=== PATIENT | female | born 1985 | race Two or more races ===

== ENCOUNTER 2016-03-31 12:54 | Emergency (ER) | payer MEDICAID ==
[~2016-03-31] VITALS: Ht 162.6 cm; Wt 59.9 kg
[2016-03-31 13:20] VITALS: BP 132/78
[2016-03-31 13:52] LABS: APPEARANCE,URINE CLEAR; KETONES,URINE NEGATIVE (NEGATIVE); LEUKOCYTE ESTERASE ,URINE 1+ (NEGATIVE); NITRITE,URINE NEGATIVE (NEGATIVE); PH,URINE 8 (4.5-8.0); PROTEIN,URINE NEGATIVE (NEGATIVE); UROBILINOGEN,URINE NORMAL MG/DL (0.0-1.0)
--- NOTE | 2016-03-31 14:05 | Emergency Room Report ---
History of Present Illness General Chief Complaint: Abdominal Pain Source: Patient (LIANNE ROSS M.D.) Present Illness HPI 30 YO F presents with acute worsening right upper quadrant pain radiating to back with subjective chills at home. Has had for >1 month, acutely worse today with bilious yellow vomiting. Denies diarrhea, urinary complaints, sick contacts , foreign travel, history of abd/pelvis surgery, other medical problems. Has been tx with OTC meds all month with some improvement. No history of gallstones. (LIANNE ROSS M.D.) Allergies: Coded Allergies: No Known Allergies (Unverified , 03/31/16) Patient History Past Medical History: none Past Surgical History: none Pertinent Family History: none Social History: Denies: alcohol use, drug use, smoking Last Menstrual Period: Now: No Immunizations: UTD Reviewed Nursing Documentation: PMH: Agreed, PSxH: Agreed (LIANNE ROSS M.D.) Nursing Documentation-PMH Past Medical History: No Stated History (LIANNE ROSS M.D.) Review of Systems All Other Systems: negative except mentioned in HPI (LIANNE ROSS M.D.) Physical Exam Vital Signs Date Time Temp Pulse Resp B/P Pulse Ox O2 Delivery O2 Flow Rate FiO2 03/31/16 13:10 98.1 72 18 108/74 100 Room Air Sp02 EP Interpretation: reviewed, normal General Appearance: normal inspection, well appearing, alert, GCS 15, non-toxic , moderate distress Head: normocephalic, atraumatic Eyes: bilateral eye EOMI, bilateral eye PERRL ENT: normal ENT inspection, hearing grossly normal, normal voice Neck: normal inspection, full range of motion, supple, no bony tend Respiratory: normal inspection, lungs clear, normal breath sounds, no respiratory distress, no retraction, no wheezing Cardiovascular #1: regular rate, rhythm, no edema Gastrointestinal: normal inspection, normal bowel sounds, soft, no hernia, no pulsatile mass, no rebound, guarding, other - +RUQ ttp with guarding. No rebound or rigidity. Genitourinary: no CVA tenderness Musculoskeletal: normal inspection, back normal, normal range of motion, Vincent' s Sign negative Neurologic: normal inspection, alert, oriented x3, responsive, prototype technician III-XII nml as tested, motor strength/tone normal, speech normal Psychiatric: normal inspection, judgement/insight normal, mood/affect normal Skin: normal inspection, normal color, no rash Lymphatic: normal inspection (LIANNE ROSS M.D.) Medical Decision Making Diagnostic Impression: Primary Impression: RUQ abdominal pain Additional Impression: Vomiting Qualified Codes: R11.14 - Bilious vomiting ER Course RUQ pain with bilious vomiting. VSS. Afebrile. DDx acute carmen, pancreatitis, colitis, viral gastroenteritis PLAN Labs, IVF, zofran, morphine, ABD sono, reassess (LIANNE ROSS M.D.) ER Course This patient was turned over to me by Dr. Ross. She presented with right upper quadrant abdominal pain that has begun on times one month. She's also had nausea, vomiting and diarrhea. She was pending a right upper quadrant ultrasound and laboratory workup. Right upper quadrant ultrasound showed no significant findings. She did have an enlarged gallbladder. Given the negative workup I did go ahead and obtain a CT abdomen and pelvis which did show evidence of enteritis. Further discussion with the patient I recommended she be admitted for pain control, however, she would like to try to use pain medications at home. Given this patient has had ongoing symptoms for about a month, I will set the patient on treatment for bacterial enteritis with ciprofloxacin and Flagyl. The patient Ultram for pain control. Patient was also instructed to return to the emergency department for worsening symptoms. At this time she preferred to go home and will return if her symptoms aren't controlled at home. She is also educated that she will need to followup with a legal billing coordinator and likely need to undergo further testing to include endoscopy. The patient indicated understanding and intention to do so. The patient was given close return precautions and followup instructions. Labs Test 03/31/16 13:25 03/31/16 14:22 Urine Color Pale yellow Urine Appearance Clear Urine pH 8 (4.5-8.0) Urine Specific [place] 1.010 (1.005-1.035) Urine Protein Negative (NEGATIVE) Urine Glucose (UA) Negative (NEGATIVE) Urine Ketones Negative (NEGATIVE) Urine Occult Blood 4+ (NEGATIVE) Urine Nitrite Negative (NEGATIVE) Urine Bilirubin Negative (NEGATIVE) Urine Urobilinogen Normal MG/DL (0.0-1.0) Urine Leukocyte Esterase 1+ (NEGATIVE) Urine RBC 2-4 /HPF (0 - 2) Urine WBC 2-4 /HPF (0 - 2) Urine Squamous Epithelial Cells Few /LPF (NONE/OCC) Urine Bacteria Few /HPF (NONE) Urine HCG, Qualitative Negative White Blood Count 8.6 K/UL (4.8-10.8) Red Blood Count 4.02 M/UL (4.20-5.40) Hemoglobin 12.7 G/DL (12.0-16.0) Hematocrit 38.9 % (37.0-47.0) Mean Corpuscular Volume 97 FL (80-99) Mean Corpuscular Hemoglobin 31.6 PG (27.0-31.0) Mean Corpuscular Hemoglobin Concent 32.6 G/DL (32.0-36.0) Red Cell Distribution Width 12.1 % (11.6-14.8) Platelet Count 260 K/UL (150-450) Mean Platelet Volume 7.3 FL (6.5-10.1) Neutrophils (%) (Auto) 65.7 % (45.0-75.0) Lymphocytes (%) (Auto) 25.5 % (20.0-45.0) Monocytes (%) (Auto) 7.3 % (1.0-10.0) Eosinophils (%) (Auto) 0.6 % (0.0-3.0) Basophils (%) (Auto) 1.0 % (0.0-2.0) Sodium Level 139 mEQ/L (135-145) Potassium Level 4.0 mEQ/L (3.4-4.9) Chloride Level 99 mEQ/L (98-107) Carbon Dioxide Level 21 mEQ/L (20-30) Anion Gap 19 (5-15) Blood Urea Nitrogen 13 mg/dL (7-23) Creatinine 0.5 mg/dL (0.5-0.9) Estimat Glomerular Filtration Rate > 60 mL/min (>60) Glucose Level 89 mg/dL (74-106) Calcium Level 9.1 mg/dL (8.6-10.2) Total Bilirubin 0.2 mg/dL (0.0-1.2) Aspartate Amino Transf (AST/SGOT) 21 U/L (5-40) Alanine Aminotransferase (ALT/SGPT) 19 U/L (3-33) Alkaline Phosphatase 47 U/L (35-104) Total Protein 7.3 g/dL (6.6-8.7) Albumin 4.7 g/dL (3.5-5.2) Globulin 2.6 g/dL Albumin/Globulin Ratio 1.8 (1.0-2.7) Lipase 32 U/L (< 60) (MAKAYLA LOJA D.O.) CT/MRI/US Diagnostic Results CT/MRI/US Diagnostic Results : Imaging Test Ordered: CT abd/pelvis, RUQ US Impression Nonspecific contact throughout small bowel, nonobstructive/mild ileitis/ enteritis. Right upper quadrant ultrasound shows no evidence of cholecystitis or cholelithiasis. The gallbladder is enlarged. There is no formal reading on the ultrasound by the radiologist. Please see official report. (MAKAYLA LOJA D.O.) Last Vital Signs Date Time Temp Pulse Resp B/P Pulse Ox O2 Delivery O2 Flow Rate FiO2 03/31/16 13:10 98.1 72 18 108/74 100 Room Air (LIANNE ROSS M.D.) Disposition: HOME, SELF-CARE Condition: Stable Referrals: NOT CHOSEN IPA/,REFERRING (PCP) LIANNE ROSS M.D. Mar 31, 2016 14:05 MAKAYLA LOJA D.O. Mar 31, 2016 18:59
[2016-03-31 14:06] LABS: BACTERIA,URINE FEW /HPF; SQUAMOUS EPITHELIAL CELL,UR FEW /LPF (NONE/OCC)
[2016-03-31] MEDS ORDERED: Morphine Sulfate 4mg/ml Inj IVP ONE (14:15)
[2016-03-31 14:36] LABS: EOSINOPHILS % (AUTO) 0.6 % (0.0-3.0); LYMPHOCYTES % (AUTO) 25.5 % (20.0-45.0); MEAN CORPUSCULAR HEMOGLOBIN 31.6 PG (27.0-31.0); MEAN CORPUSCULAR HGB CONC 32.6 G/DL (32.0-36.0); MEAN CORPUSCULAR VOLUME 97 FL (80-99); MEAN PLATELET VOLUME 7.3 FL (6.5-10.1); MONOCYTES % (AUTO) 7.3 % (1.0-10.0); NEUTROPHILS % (AUTO) 65.7 % (45.0-75.0); PLATELET COUNT 260 K/UL (150-450); RED BLOOD COUNT 4.02 M/UL (4.20-5.40); RED CELL DISTRIBUTION WIDTH 12.1 % (11.6-14.8); WHITE BLOOD COUNT 8.6 K/UL (4.8-10.8)
[2016-03-31 14:53] LABS: ALANINE AMINOTRANSFERASE 19 U/L (3-33); ALBUMIN/GLOBULIN RATIO 1.8 (1.0-2.7); ANION GAP 19 (5-15); ASPARTATE AMINO TRANSFERASE 21 U/L (5-40); CALCIUM 9.1 mg/dL (8.6-10.2); CARBON DIOXIDE 21 mEQ/L (20-30); CHLORIDE 99 mEQ/L (98-107); CREATININE 0.5 mg/dL (0.5-0.9); GLOMERULAR FILTRATION RATE > 60 mL/min (>60); HEMOLYSIS 8; LIPASE 32 U/L (< 60); SODIUM 139 mEQ/L (135-145); TOTAL PROTEIN 7.3 g/dL (6.6-8.7)
[2016-03-31 15:17] VITALS: BP 114/63
[2016-03-31] MEDS ORDERED: Lidocaine 2% Visc 15ml soln ORAL ONE (17:15)
[2016-03-31] MEDS ORDERED: Ketorolac 30mg Inj IV ONE (17:15)
[2016-03-31] MEDS ORDERED: ULTRAM50 MG ORAL (19:42)
[2016-03-31] MEDS ORDERED: CIPROFLOXACIN500 M2 ORAL (19:42)
[2016-03-31] MEDS ORDERED: METRONIDAZOLE500 MG ORAL (19:42)
[2016-03-31] MEDS ORDERED: ZOFRAN ODT8 MG ORAL (19:42)
[2016-03-31 19:57] VITALS: BP_SYST 114; BP_SYST 117; BP_DIAS 63; BP_DIAS 66
--- NOTE | 2016-04-01 08:44 | Diagnostic Imaging Report ---
Clinical Indication: Abdominal pain right upper quadrant Technique: No oral contrast utilized, per emergency room physician request IV administration nonionic contrast. Venous phase spiral acquisition obtained through the abdomen and pelvis. Multiplanar reconstructions were generated. Total dose length product 820 mGycm. CTDIvol(s) 16 mGy Comparison: None Findings: No evidence of diverticulosis or diverticulitis. Normal appendix. No small bowel distention. Small bowel loops are somewhat fluid filled. The distal esophagus and stomach are unremarkable. No free or loculated intraperitoneal air or fluid. The gallbladder is distended, but there are no stones, wall thickening, or evidence of pericholecystic inflammation. The liver, bile ducts, pancreas, spleen, adrenals, kidneys are unremarkable. No mesenteric or retroperitoneal mass or adenopathy. The left ovary contains a 3.4 cm cyst. The uterus demonstrates multiple small cervical nabothian cysts. Included lung bases are clear. The bones are unremarkable. Impression: Mildly fluid-filled small bowel, could indicate mild enteritis changes. Correlate with clinical findings No acute process otherwise 3.4 cm left ovarian cyst. Recommend further followup with pelvic and endovaginal ultrasonography Incidental finding of cervical nabothian cysts. This agrees with the preliminary interpretation provided overnight by Dr. Vega The CT scanner at [facility] is accredited by the [employer] and the scans are performed using protocols designed to limit radiation exposure to as low as reasonably achievable to attain images of sufficient resolution adequate for diagnostic evaluation.
--- NOTE | 2016-04-01 11:19 | Diagnostic Imaging Report ---
Indication: Right upper quadrant pain, nausea, vomiting Technique: Auguste-scale and duplex images of the upper abdomen were obtained Comparison: None Findings: . Gallbladder is distended. No definite stones. Collateral borderline thickened, measuring 3 mm thick. No pericholecystic fluid. There is questionably some sludge. Sonographic Tena's sign is positive, per technologist. Common bile duct measures 4 mm in diameter. No intrahepatic biliary ductal dilatation. Liver demonstrates normal echogenicity, no focal abnormality. Portal vein and hepatic veins are patent.. Pancreas is incompletely visualized due to overlying bowel gas, visualized portions are unremarkable. Spleen is unremarkable. Left kidney measures 10.7 cm in length. Right kidney measures 10.6 cm length. Both kidneys demonstrate normal echogenicity. There is no hydronephrosis. No focal abnormality. . Non-aneurysmal abdominal aorta. Impression: Negative for gallstones. However, equivocal slight gallbladder wall thickening and positive sonographic Tena's sign raises concern or possibly acute cholecystitis. On clinical findings, consider hepatobiliary nuclear scan if there is high clinical suspicion. There maybe a small amount of gallbladder sludge Negative for dilated ducts No other acute or significant abnormalities. Note inability to visualize the entire pancreas
== END 2016-03-31 19:59 | disposition home or self-care (01) ==
LOC: EMR 13:27
DX: R10.11 Right upper quadrant pain (principal); R11.14 Bilious vomiting
CPT/HCPCS: 36415; 74177; 76700; 80053; 81003; 81025; 83690; 85025; 96374; 96375; 99284; J1885; J2270; J2405; Q9967

== ENCOUNTER 2017-08-25 12:19 | Emergency (ER) | payer MEDICAID ==
[~2017-08-25] VITALS: Ht 162.6 cm; Wt 54.4 kg
[~2017-08-25 12:19] MED LIST: CIPROFLOXACIN500 M2 ORAL; METRONIDAZOLE500 MG ORAL; ULTRAM50 MG ORAL; ZOFRAN ODT8 MG ORAL
[2017-08-25 12:59] VITALS: BP 108/64
[2017-08-25] MEDS ORDERED: Metoclopramide 10mg/2ml Inj IVP ONE (13:30)
[2017-08-25] MEDS ORDERED: Lidocaine 2% Visc 15ml soln ORAL ONE (13:30)
[2017-08-25] MEDS ORDERED: Mylanta II UD 30ml ORAL ONE (13:30)
[2017-08-25] MEDS ORDERED: Dicyclomine HCl 10mg/5ml oral soln ORAL ONE (13:30)
[2017-08-25 13:40] LABS: ANION GAP 10 mmol/L (5-15); BLOOD UREA NITROGEN 15 mg/dL (7-18); CALCIUM 8.4 MG/DL (8.5-10.1); CARBON DIOXIDE 27 MMOL/L (21-32); CHLORIDE 102 MMOL/L (98-107); CREATININE 0.6 MG/DL (0.55-1.30); POTASSIUM 3.6 MMOL/L (3.5-5.1); SODIUM 138 MMOL/L (136-145)
[2017-08-25 13:42] LABS: BASOPHILS % (AUTO) 0.9 % (0.0-2.0); EOSINOPHILS % (AUTO) 0.8 % (0.0-3.0); HEMATOCRIT 39.7 % (37.0-47.0); HEMOGLOBIN 13.1 G/DL (12.0-16.0); LYMPHOCYTES % (AUTO) 18.7 % (20.0-45.0); MEAN CORPUSCULAR VOLUME 93 FL (80-99); MONOCYTES % (AUTO) 5.2 % (1.0-10.0); NEUTROPHILS % (AUTO) 74.4 % (45.0-75.0); PLATELET COUNT 286 K/UL (150-450); RED BLOOD COUNT 4.25 M/UL (4.20-5.40); RED CELL DISTRIBUTION WIDTH 11.5 % (11.6-14.8); WHITE BLOOD COUNT 8.7 K/UL (4.8-10.8)
[2017-08-25 13:44] LABS: ALANINE AMINOTRANSFERASE 27 U/L (12-78); ALBUMIN 4.1 G/DL (3.4-5.0); ALBUMIN/GLOBULIN RATIO 1.1 (1.0-2.7); ALKALINE PHOSPHATASE 54 U/L (46-116); ASPARTATE AMINO TRANSFERASE 22 U/L (15-37); BILIRUBIN,TOTAL 0.3 MG/DL (0.2-1.0)
[2017-08-25] MEDS ORDERED: RANITIDINE HCL150 MG ORAL (14:43)
[2017-08-25] MEDS ORDERED: ONDANSETRON ODT4 MG BC (14:43)
[2017-08-25] MEDS ORDERED: DICYCLOMINE HCL10 MG PO (14:43)
[2017-08-25 14:49] LABS: APPEARANCE,URINE CLEAR; BILIRUBIN, URINE NEGATIVE (NEGATIVE); COLOR,URINE PALE YELLOW; GLUCOSE, URINE (UA) NEGATIVE (NEGATIVE); KETONES,URINE NEGATIVE (NEGATIVE); LEUKOCYTE ESTERASE ,URINE NEGATIVE (NEGATIVE); NITRITE,URINE NEGATIVE (NEGATIVE); PH,URINE 7 (4.5-8.0); PROTEIN,URINE NEGATIVE (NEGATIVE); UROBILINOGEN,URINE NORMAL MG/DL (0.0-1.0)
[2017-08-25 14:55] VITALS: BP 108/64
--- NOTE | 2017-08-25 16:39 | Emergency Room Report ---
History of Present Illness General Chief Complaint: Abdominal Pain Source: Patient Present Illness HPI 32-year-old female presents ED complaining abdominal pain vomiting and diarrhea starting yesterday. Cramping pain, 8 out of 10, nonradiating. Denies fevers or chills. Denies sick contacts or recent travel. Denies recent antibiotic use. No other aggravating relieving factors. Denies any other associated symptoms Allergies: Coded Allergies: No Known Allergies (Unverified , 03/31/16) Patient History Past Medical History: none Past Surgical History: none Pertinent Family History: none Social History: Denies: smoking, alcohol use, drug use Now: No - 07/20/17 Immunizations: UTD Reviewed Nursing Documentation: PMH: Agreed; PSxH: Agreed Nursing Documentation-PMH Past Medical History: No Stated History Review of Systems All Other Systems: negative except mentioned in HPI Physical Exam Vital Signs Date Time Temp Pulse Resp B/P (MAP) Pulse Ox O2 Delivery O2 Flow Rate FiO2 08/25/17 12:41 97.8 62 16 110/60 98 Room Air 97.9 Sp02 EP Interpretation: reviewed, normal General Appearance: no apparent distress, alert, GCS 15, non-toxic Head: normocephalic, atraumatic Eyes: bilateral eye normal inspection, bilateral eye PERRL ENT: hearing grossly normal, normal pharynx, no angioedema, normal voice Neck: full range of motion, supple/symm/no masses Respiratory: chest non-tender, lungs clear, normal breath sounds, speaking full sentences Cardiovascular #1: regular rate, rhythm, no edema Cardiovascular #2: 2+ carotid (R), 2+ carotid (L), 2+ radial (R), 2+ radial (L) , 2+ dorsalis pedis (R), 2+ dorsalis pedis (L) Gastrointestinal: normal bowel sounds, non tender, soft, non-distended, no guarding, no rebound Rectal: deferred Genitourinary: normal inspection, no CVA tenderness Musculoskeletal: back normal, gait/station normal, normal range of motion, non- tender Neurologic: alert, oriented x3, responsive, motor strength/tone normal, sensory intact, speech normal Psychiatric: judgement/insight normal, memory normal, mood/affect normal, no suicidal/homicidal ideation Reflexes: 3+ bicep (R), 3+ bicep (L), 3+ tricep (R), 3+ tricep (L), 3+ knee (R) , 3+ knee (L) Skin: normal color, no rash, warm/dry, well hydrated Lymphatic: no adenopathy Medical Decision Making Diagnostic Impression: Primary Impression: Gastroenteritis ER Course Hospital Course 32-year-old F presents to ED with cramping abdominal pain with vomiting, diarrhea differential diagnosis: gastritis, SBO, cholecystits, gastroenteritis Clinical course Patient placed on stretcher. On network coordinator. After initial history and physical I ordered labs, IV fluids, Zofran and pepcid Labs - no leukocytosis, electrolytes ok , LFTs normal, UA unremarkable Upon reassessment, patient states pain has improved. findings consistent with gastroenteritis I feel this is a highly complex case requiring extensive working including EKG/ Rhythm strip, Xray/CT/US, Blood/urine lab work, repeat exams while in ED, and administration of strong opiates/narcotics for pain control, admission to hospital or close patient follow up. Diagnosis - gastroenteritis Stable and discharged to home with prescriptions for Zantac, zofran, bentyl. Followup with PMD. Return to ED if symptoms recur or worsen Labs Test 08/25/17 12:45 08/25/17 14:25 White Blood Count 8.7 K/UL (4.8-10.8) Red Blood Count 4.25 M/UL (4.20-5.40) Hemoglobin 13.1 G/DL (12.0-16.0) Hematocrit 39.7 % (37.0-47.0) Mean Corpuscular Volume 93 FL (80-99) Mean Corpuscular Hemoglobin 30.9 PG (27.0-31.0) Mean Corpuscular Hemoglobin Concent 33.1 G/DL (32.0-36.0) Red Cell Distribution Width 11.5 % (11.6-14.8) Platelet Count 286 K/UL (150-450) Mean Platelet Volume 7.1 FL (6.5-10.1) Neutrophils (%) (Auto) 74.4 % (45.0-75.0) Lymphocytes (%) (Auto) 18.7 % (20.0-45.0) Monocytes (%) (Auto) 5.2 % (1.0-10.0) Eosinophils (%) (Auto) 0.8 % (0.0-3.0) Basophils (%) (Auto) 0.9 % (0.0-2.0) Sodium Level 138 MMOL/L (136-145) Potassium Level 3.6 MMOL/L (3.5-5.1) Chloride Level 102 MMOL/L (98-107) Carbon Dioxide Level 27 MMOL/L (21-32) Anion Gap 10 mmol/L (5-15) Blood Urea Nitrogen 15 mg/dL (7-18) Creatinine 0.6 MG/DL (0.55-1.30) Estimat Glomerular Filtration Rate > 60 mL/min (>60) Glucose Level 87 MG/DL (74-106) Calcium Level 8.4 MG/DL (8.5-10.1) Total Bilirubin 0.3 MG/DL (0.2-1.0) Aspartate Amino Transf (AST/SGOT) 22 U/L (15-37) Alanine Aminotransferase (ALT/SGPT) 27 U/L (12-78) Alkaline Phosphatase 54 U/L (46-116) Total Protein 7.9 G/DL (6.4-8.2) Albumin 4.1 G/DL (3.4-5.0) Globulin 3.8 g/dL Albumin/Globulin Ratio 1.1 (1.0-2.7) Lipase 168 U/L (73-393) Urine Color Pale yellow Urine Appearance Clear Urine pH 7 (4.5-8.0) Urine Specific [place] 1.010 (1.005-1.035) Urine Protein Negative (NEGATIVE) Urine Glucose (UA) Negative (NEGATIVE) Urine Ketones Negative (NEGATIVE) Urine Occult Blood Negative (NEGATIVE) Urine Nitrite Negative (NEGATIVE) Urine Bilirubin Negative (NEGATIVE) Urine Urobilinogen Normal MG/DL (0.0-1.0) Urine Leukocyte Esterase Negative (NEGATIVE) Urine HCG, Qualitative Negative (NEGATIVE) Last Vital Signs Date Time Temp Pulse Resp B/P (MAP) Pulse Ox O2 Delivery O2 Flow Rate FiO2 08/25/17 12:59 98.0 78 18 108/64 98 Room Air 98.0 Status: improved Disposition: HOME, SELF-CARE Condition: Stable Scripts Dicyclomine Hcl* (DICYCLOMINE HCL*) 10 Mg Capsule 10 MG PO QID, #20 CAP Prov: Khanh George MD 08/25/17 Ranitidine Hcl* (ZANTAC*) 150 Mg Tablet 150 MG ORAL TWICE A DAY, #30 TAB Prov: Khanh George MD 08/25/17 Ondansetron Odt* (ZOFRAN ODT*) 4 Mg Tab.rapdis 4 MG BC EVERY 8 HOURS, #20 TAB 0 Refills Prov: Khanh George MD 08/25/17 Patient Instructions: Viral Gastroenteritis, Adult, [id number] Khanh George MD Aug 25, 2017 16:39
== END 2017-08-25 14:55 | disposition home or self-care (01) ==
LOC: EMR 13:34
DX: K52.9 Noninfective gastroenteritis and colitis, unspecified (principal)
CPT/HCPCS: 36415; 80053; 81003; 81025; 83690; 85025; 96361; 96374; 96375; 99284; J2765; S0028

== ENCOUNTER 2019-12-07 11:28 | Emergency (ER) | payer MEDICAID ==
[~2019-12-07] VITALS: Ht 160 cm; Wt 54.9 kg
[~2019-12-07 11:28] MED LIST changes: +DICYCLOMINE HCL10 MG PO; +ONDANSETRON ODT4 MG BC; +RANITIDINE HCL150 MG ORAL
--- NOTE | 2019-12-07 11:55 | Emergency Room Report ---
History of Present Illness General Chief Complaint: Abdominal Pain Source: Patient Present Illness HPI Disclaimer: Please note that this report is being documented using DRAGON technology. This can lead to erroneous entry secondary to incorrect interpretation by the dictating instrument. HPI: 34-year-old female presents for evaluation of abdominal pain and vomiting as well as diarrhea. Symptoms present for days. Seen in another emergency department 2 days ago and diagnosed with urinary tract infection. She has been compliant with her antibiotics but cannot recall the name of the antibiotic at this time. Reports persistent epigastric burning and cramping as well as vomiting. She feels generally weak. Denies fever, chills. Reports nonbloody diarrhea. Denies hematochezia or melena. Denies dysuria or hematuria or flank pain. No history of intra-abdominal surgeries. CT scan in her previous ER visit was reportedly unremarkable. PMH: Denied PSH: Denied Allergies: Denied Social Hx: Denies drug or alcohol abuse Allergies: Coded Allergies: No Known Allergies (Unverified , 03/31/16) COVID-19 Screening Contact w/high risk pt: No Experienced COVID-19 symptoms?: No COVID-19 Testing performed DIGESTER HAND: No Patient History Last Menstrual Period: july 2019 Nursing Documentation-PMH Past Medical History: No History, Except For Review of Systems All Other Systems: negative except mentioned in HPI Physical Exam Vital Signs Date Time Temp Pulse Resp B/P (MAP) Pulse Ox O2 Delivery O2 Flow Rate FiO2 12/07/19 11:33 98.1 72 18 146/82 (103) 98 Room Air General: Awake and alert, appears uncomfortable HEENT: NC/AT. EOMI. Cardiovascular: RRR. S1 and S2 normal. No murmur appreciated Resp: Normal work of breathing. No cough, wheezing or crackles appreciated Abdomen: Abdomen is soft, nondistended. Tender palpation in the epigastric and upper quadrants without Tena's tenderness. No masses. No rebound. Mild tenderness in the periumbilical region. No significant tenderness in the lower quadrants. Skin: Intact. No abrasions, laceration or rash over the exposed skin MSK: Normal tone and bulk. Moving all extremities. No obvious deformity. Neuro: Awake and alert. Mentating appropriately. Medical Decision Making Diagnostic Impression: Primary Impression: Abdominal pain Additional Impression: Gastroenteritis ER Course This a 34-year-old female presenting for evaluation of abdominal pain vomiting and diarrhea for 4 days. Differential includes was not limited to viral syndrome viral gastritis, gastroenteritis, pancreatitis, cholecystitis, food poisoning, persistent UTI to name a few. CT scan her previous ER visit was reportedly normal. Patient receiving IV fluids, antiemetics, antacids and pain medication. Labs have returned within normal limits. She is currently being treated for urinary tract infection has antibiotics at home. Patient was feeling better after receiving GI cocktail. Will discharge with refill of her Zantac and Zofran. Follow-up with PMD. Instructed to return with new or worsening symptoms. Laboratory Tests Test 12/07/19 12:00 White Blood Count 5.6 K/UL (4.8-10.8) Red Blood Count 4.09 M/UL (4.20-5.40) L Hemoglobin 13.0 G/DL (12.0-16.0) Hematocrit 37.4 % (37.0-47.0) Mean Corpuscular Volume 91 FL (80-99) Mean Corpuscular Hemoglobin 31.7 PG (27.0-31.0) H Mean Corpuscular Hemoglobin Concent 34.7 G/DL (32.0-36.0) Red Cell Distribution Width 12.3 % (11.6-14.8) Platelet Count 277 K/UL (150-450) Mean Platelet Volume 7.2 FL (6.5-10.1) Neutrophils (%) (Auto) 66.2 % (45.0-75.0) Lymphocytes (%) (Auto) 25.7 % (20.0-45.0) Monocytes (%) (Auto) 6.4 % (1.0-10.0) Eosinophils (%) (Auto) 0.4 % (0.0-3.0) Basophils (%) (Auto) 1.3 % (0.0-2.0) Urine Color Pale yellow Urine Appearance Clear Urine pH 5 (4.5-8.0) Urine Specific [place] 1.010 (1.005-1.035) Urine Protein Negative (NEGATIVE) Urine Glucose (UA) Negative (NEGATIVE) Urine Ketones Negative (NEGATIVE) Urine Blood Negative (NEGATIVE) Urine Nitrite Negative (NEGATIVE) Urine Bilirubin Negative (NEGATIVE) Urine Urobilinogen Normal MG/DL (0.0-1.0) Urine Leukocyte Esterase 1+ (NEGATIVE) H Urine RBC 0-2 /HPF (0 - 2) Urine WBC 2-4 /HPF (0 - 2) Urine Squamous Epithelial Cells Moderate /LPF (NONE/OCC) H Urine Bacteria Few /HPF (NONE) Urine Yeast Occasional /HPF (NONE) H Urine HCG, Qualitative Negative (NEGATIVE) Sodium Level 138 MMOL/L (136-145) Potassium Level 3.8 MMOL/L (3.5-5.1) Chloride Level 104 MMOL/L (98-107) Carbon Dioxide Level 24 MMOL/L (21-32) Anion Gap 10 mmol/L (5-15) Blood Urea Nitrogen 11 mg/dL (7-18) Creatinine 0.7 MG/DL (0.55-1.30) Estimated Glomerular Filtration Rate > 60 mL/min (>60) Glucose Level 98 MG/DL (74-106) Calcium Level 8.5 MG/DL (8.5-10.1) Total Bilirubin 0.4 MG/DL (0.2-1.0) Aspartate Amino Transferase (AST) 43 U/L (15-37) H Alanine Aminotransferase (ALT) 46 U/L (12-78) Alkaline Phosphatase 60 U/L (46-116) Total Protein 6.8 G/DL (6.4-8.2) Albumin 3.8 G/DL (3.4-5.0) Globulin 3.0 g/dL Albumin/Globulin Ratio 1.3 (1.0-2.7) Lipase 111 U/L (73-393) Last Vital Signs Date Time Temp Pulse Resp B/P (MAP) Pulse Ox O2 Delivery O2 Flow Rate FiO2 12/07/19 11:33 98.1 72 18 146/82 (103) 98 Room Air Disposition: HOME, SELF-CARE Condition: Stable Scripts Ranitidine Hcl* (ZANTAC) 150 Mg Tablet 150 MG ORAL TWICE A DAY, #30 TAB Prov: Gadiel Meyers MD 12/07/19 Ondansetron Odt* (ZOFRAN ODT*) 4 Mg Tab.rapdis 4 MG BC EVERY 8 HOURS, #20 TAB 0 Refills Prov: Gadiel Meyers MD 12/07/19 Gadiel Meyers MD Dec 07, 2019 11:55
[2019-12-07] MEDS ORDERED: Morphine Sulfate 4mg/ml Inj (IV USE ONLY) IVP ONE ×2 (12:00→13:45)
[2019-12-07 12:13] VITALS: BP 141/78
[2019-12-07 12:46] LABS: ANION GAP 10 mmol/L (5-15); BLOOD UREA NITROGEN 11 mg/dL (7-18); CALCIUM 8.5 MG/DL (8.5-10.1); CARBON DIOXIDE 24 MMOL/L (21-32); CHLORIDE 104 MMOL/L (98-107); CREATININE 0.7 MG/DL (0.55-1.30); POTASSIUM 3.8 MMOL/L (3.5-5.1); SODIUM 138 MMOL/L (136-145)
[2019-12-07 12:49] LABS: APPEARANCE,URINE CLEAR; BASOPHILS % (AUTO) 1.3 % (0.0-2.0); BILIRUBIN, URINE NEGATIVE (NEGATIVE); COLOR,URINE PALE YELLOW; EOSINOPHILS % (AUTO) 0.4 % (0.0-3.0); GLUCOSE, URINE (UA) NEGATIVE (NEGATIVE); HEMATOCRIT 37.4 % (37.0-47.0); KETONES,URINE NEGATIVE (NEGATIVE); LEUKOCYTE ESTERASE ,URINE 1+ (NEGATIVE); LYMPHOCYTES % (AUTO) 25.7 % (20.0-45.0); MEAN CORPUSCULAR VOLUME 91 FL (80-99); MONOCYTES % (AUTO) 6.4 % (1.0-10.0); NEUTROPHILS % (AUTO) 66.2 % (45.0-75.0); NITRITE,URINE NEGATIVE (NEGATIVE); PH,URINE 5 (4.5-8.0); PLATELET COUNT 277 K/UL (150-450); PROTEIN,URINE NEGATIVE (NEGATIVE); RED BLOOD COUNT 4.09 M/UL (4.20-5.40); RED CELL DISTRIBUTION WIDTH 12.3 % (11.6-14.8); UROBILINOGEN,URINE NORMAL MG/DL (0.0-1.0); WHITE BLOOD COUNT 5.6 K/UL (4.8-10.8)
[2019-12-07 12:50] LABS: ALANINE AMINOTRANSFERASE 46 U/L (12-78); ALBUMIN 3.8 G/DL (3.4-5.0); ALBUMIN/GLOBULIN RATIO 1.3 (1.0-2.7); ALKALINE PHOSPHATASE 60 U/L (46-116); ASPARTATE AMINO TRANSFERASE 43 U/L (15-37); BILIRUBIN,TOTAL 0.4 MG/DL (0.2-1.0)
[2019-12-07] MEDS ORDERED: ONDANSETRON ODT4 MG BC (13:30)
[2019-12-07] MEDS ORDERED: RANITIDINE HCL150 MG ORAL (13:30)
[2019-12-07] MEDS ORDERED: Omnipaque-300 100ml vial INJ PRN (13:45)
[2019-12-07] MEDS ORDERED: Mylanta II UD 30ml ORAL ONE (13:45)
[2019-12-07] MEDS ORDERED: Lidocaine 2% Visc 15ml soln ORAL ONE (13:45)
[2019-12-07] MEDS ORDERED: Dicyclomine HCl 10mg/5ml oral soln ORAL ONE (13:45)
[2019-12-07 14:50] VITALS: BP 139/77
[2019-12-07] MEDS ORDERED: TYLENOL EXTRA500 MG ORAL (15:01)
[2019-12-07 15:17] VITALS: BP 135/75
== END 2019-12-07 15:19 | disposition home or self-care (01) ==
LOC: EMR 11:50
DX: K52.9 Noninfective gastroenteritis and colitis, unspecified (principal); R10.13 Epigastric pain
CPT/HCPCS: 36415; 80053; 81003; 81025; 83690; 85025; 87086; 96361; 96374; 96375; 96376; J2270; J2405; J7030; Z7502; 99284